=== PATIENT | female | born 1970 | race Caucasian/White ===

== ENCOUNTER 2016-08-20 20:10 | Emergency (ER) | payer OTHER ==
[2016-08-20 20:15] VITALS: BP 139/87; PULSE 85; TEMP 97.9; BMI 28.8
[2016-08-20] MEDS ORDERED: SULFAMETHOXAZOLE/TRIMETHOPRIM 800MG/160MG D.S. TABLET PO ONE (21:04)
[2016-08-20] MEDS ORDERED: SULFAMETHOXAZOLE/TRIMETHOPRIM 800MG/160MG D.S. TABLET ONE (21:11)
--- NOTE | 2016-08-20 21:13 | PDOC ---
History of Present Illness - General Chief Complaint: Bite Stated Complaint: BITE Time Seen by Provider: 08/20/16 20:49 History Source: Patient Exam Limitations: No Limitations - History of Present Illness Initial Comments: 08/20/16 21:08 46-year-old female presents the ED with complaints of redness swelling and itching to the left foot since Sunday. Patient states had noticed redness to the area but had no itching. Patient states she thinks a spider bit her and has not taking anything for the discomfort or swelling. Patient denies history of diabetes, gout, or rheumatoid arthritis. Patient denies fever, chills or difficulty ambulating. Timing/Duration: reports: other Severity: Yes: mild Location: reports: other (foot) Associated Symptoms: reports: edema, other Past History - Past Medical History Allergies/Adverse Reactions: Allergies Allergy/AdvReac Type Severity Reaction Status Date / Time metoclopramide HCl AdvReac Severe "SLURRED Verified 08/20/16 20:13 [From Reglan] SPEECH,FACIAL DROOP,BODY BECOMES LIMP" Home Medications: Ambulatory Orders Acetazolamide [Diamox Sequels -] 500 mg PO BID 12/24/15 Sumatriptan Succinate [Imitrex] 50 mg PO PRN PRN 12/24/15 Topiramate 50 mg PO HS 12/24/15 Cholecalciferol (Vitamin D3) [Vitamin D3] 15,000 unit PO WEEKLY 12/27/15 Folic Acid 1 mg PO UTDICT 12/27/15 Multivitamins [Tab-A-Vit -] 1 tab PO DAILY 12/27/15 Asthma: Yes (NO RECENT ATTACK) GI Disorders: Yes (ACID REFLUX) - Surgical History Gastric Stapling: (GASTRIC SLEEVE) GI Surgery: Yes (GASTRIC SLEEVE) - Reproductive History LMP Normal: Yes Is Patient Now?: No - Psycho/Social/Smoking Cessation Hx Anxiety: No Suicidal Ideation: No Smoking Status: No Smoking History: Former smoker Have you smoked in the past 12 months: Yes Number of Cigarettes Smoked Daily: 1 Information on smoking cessation initiated: No 'Breaking Loose' booklet given: 12/24/15 Hx Alcohol Use: No Drug/Substance Use Hx: No Substance Use Type: None Hx Substance Use Treatment: No Patient Lives Alone: No Lives with/in: spouse/SO Review of Systems - Review of Systems Able to Perform ROS?: Yes Constitutional: No: Symptoms Reported Cardiac (ROS): Yes: Edema (left foot) Integumentary: Yes: Erythema, Pruritus Neurological: No: Symptoms reported *Physical Exam - Vital Signs Last Vital Signs Temp Pulse Resp BP Pulse Ox 97.9 F 85 18 139/87 99 08/20/16 20:13 08/20/16 20:13 08/20/16 20:13 08/20/16 20:13 08/20/16 20:13 - Physical Exam General Appearance: Yes: Nourished, Appropriately Dressed. No: Apparent Distress Vascular Pulses: Doralis-Pedis (L): 2+ Extremity: positive: Normal Capillary Refill, Normal Range of Motion, Tender ( over 2 cm circular firm area to the base of left fifth toe) Integumentary: positive: Erythema (dorsal aspect of left foot. No streaking. no palpable fluctuance), Swelling Neurologic: positive: Motor Strength 5/5 (ambulatory) Medical Decision Making - Medical Decision Making 08/20/16 21:11 Patient with localized cellulitis of the left foot likely from a spider bite. Patient ordered for first dose of Bactrim and will be discharged home with the same. Patient given work note times one day. *DC/Admit/Observation/Transfer Diagnosis at time of Disposition: Cellulitis of left foot - Referrals Referrals: Obi Becker MD [Primary Care Provider] - - Patient Instructions Printed Discharge Instructions: DI for Cellulitis -- Adult Additional Instructions: Take antibiotics until completed. Elevate your foot higher than you heart for the next 2 days. Apply warm soaks 15 minutes 4 times a day for the next 2 days. - Post Discharge Activity Work/School Note: Back to Work
== END 2016-08-20 21:20 | disposition home or self-care (01) ==
LOC: JERFT 20:10
DX: L03.116 Cellulitis of left lower limb (principal); J45.909 Unspecified asthma, uncomplicated; K21.9 Gastro-esophageal reflux disease without esophagitis; Z98.84 Bariatric surgery status
CPT/HCPCS: 99281-25